=== PATIENT | female | born 1985 | race Caucasian/White ===

== ENCOUNTER 2023-09-11 11:02 | Outpatient (CLI) | payer BC, SELFPAY ==
--- NOTE | 2023-09-11 11:00 | CRLHL7_ITS ---
For Patients: As a result of the Century Cures Act, medical imaging exams and procedure reports are released immediately into your electronic medical record. You may view this report before your referring provider. If you have questions, please contact your health care provider. Indication: Chronic Sinusitis Technique: Performed without IV contrast Comparison: None available Findings: Frontal sinuses: Near complete opacification of the right frontal sinus noted. Minimal mucosal thickening within the inferior left frontal sinus. Ethmoid sinuses: Moderate opacification of the anterior right ethmoid sinus and mild opacification of the mid left ethmoid sinus. Maxillary sinuses: Complete opacification of the right maxillary sinus with bowing of medial maxillary sinus wall and obstruction of the right ostiomeatal complex. Thickening within the left maxillary sinus with patency of the left-sided sinus drainage pathway. Sphenoid sinuses: Minimal mucosal thickening within the right sphenoid sinus with partial obstruction of the sphenoidal ethmoidal recess. Left sphenoid sinus and left-sided recess are clear. Nasal Cavity: There is mild S shaped curvature of the nasal septum. No ellyn bullosa. The right middle terminate abuts the medial wall of the right maxillary sinus. No TMJ abnormalities identified. The visualized portions of the orbits, intracranial contents and upper soft tissue neck are grossly negative. Impression: 1. Severe right maxillary sinus disease with obstruction of the sinus drainage pathway and bowing deformity of the right medial maxillary sinus wall, query mucocele. 2. Moderate sinus disease involving the right ethmoid and right frontal sinuses. Mild sinus disease elsewhere. Please note that all CT scans at this facility use dose modulation, iterative reconstruction, and/or weight-based dosing when appropriate to reduce radiation dose to as low as reasonably achievable. Dictated by Jay Cm MD @ 09/11/2023 1:24:22 PM (Electronically Signed)
== END 2023-09-11 11:03 | disposition home or self-care (01) ==
LOC: CT 11:03
PROVIDERS: PCP Family Medicine; Visit Provider Otolaryngology
DX: J32.9 Chronic sinusitis, unspecified (principal); J32.0 Chronic maxillary sinusitis
CPT/HCPCS: 70486

== ENCOUNTER 2023-10-25 08:16 | Day surgery (SDC) | payer BC, SELFPAY ==
[2023-10-25] VITALS (19 sets, daily range): BP systolic 121–144; BP diastolic 72–90; PULSE 94–105; RESP 12–20; TEMP 36.3–36.9; O2SAT 87–99; BMI 25.7
--- OUTSIDE RECORDS SUMMARY | 2023-10-25 08:18 | XMS_ITS | Clinical Summary ---
Author Name Unknown Organization [facility] Address [place], [place] [address] Care Team Providers Care Line Assembly Utility Worker Name Role Phone Rosio Gorman Primary Care Provider [phone] Allergies No known active allergies Medications Medication Sig Dispensed Refills Start Date End Date Status multivitamin (MVI) tablet Take 1 Tablet by mouth once daily. 0 12/16/2020 Active Hospital, Clinic, or Other Facility Administered Medication Ordered Dose Route Frequency Start Date End Date Status levonorgestrel intrauterine device 1 Device (MIRENA)Indications: contraception 1 Device IU Q 5 YEARS 02/13/2019 Active Active Problems Problem Noted Date Diagnosed Date Genital herpes, unspecified 08/27/2007 Overview: given Valtrex for as needed use Migraine, unspecified, witho ut mention of intractable migraine without mention of status migrainosus 11/22/2006 Pap smear of cervix with ASCUS, cannot exclude H GSIL 08/28/2006 Overview: 07/2005 ASC-H 08/2005 [place]: KIKO 1 01/2006 NIL 08/2006 NIL 08/2007 NIL 08/2008 ASCUS/HPV+ 10/2008 [place]: No biopsy taken 09/2009 ASCUS/HPV+ 10/2009 [place]: No biopsy taken 03/2011 NIL 02/2013 NIL 06/2017 NIL/HPV Negative 07/2023 NIL/HPV Negative Plan: Pap and HPV due 07/2026 [facility] recommends: History of ASC-H; Pap and HPV every 3 years for 25 years. TMJ DISORDER 03/06/2005 MAJOR DEPR, SINGLE, FULL REMISSION 09/26/2004 HEADACHE, MIXED 10/27/2003 ACNE NEC 07/30/2000 SCOLIOSIS, IDIOPATHIC 04/30/2000 Resolved Problems Problem Noted Date Diagnosed Date Resolved Date Encounter for supervision of normal in first trimester 05/07/2018 10/16/2023 Overview: Not sure if she wants or repeat c section. ( distress in early labor at 35 weeks) Rosio Gorman D.O. 05/07/2018 12:57 PM Component Latest Ref Rng & Units 11/10/2018 Culture No Group B Streptococcus isolated. Estimated Date of Delivery: 12/07/18 Patient's last menstrual period was 03/02/2018. Last Tdap- 09/26/2018 Last Flu vaccine- 09/05/2018 Glucose (GTT) result- Component Latest Ref Rng & Units 09/05/2018 HEMOGLOBIN 12.0 - 16.0 g/dL 11.4 (L) MCV 80 - 100 fL 92 GLUCOSE,GESTATIONAL 65 - 139 mg/dL 85 No Known Allergies Obstetric History T1 L1 SAB0 TAB0 Ectopic0 Multiple0 Live Births0 # Outcome Date GA Lbr Jeremiah/2nd Weight Sex Delivery Anes PTL Lv 2 Current 1 Term 02/23/15 2.78 kg (6 lb 2 oz) F Name: Caryn Duarte lab flowsheet for OB labs- Component Latest Ref Rng & Units 04/04/2018 04/04/2018 04/04/2018 10:57 AM 10:57 AM 10:57 AM ANTIBODY SCREEN Negative Negative SPECIMEN EXPIRATION DATE/TIME 04/07/18 23:59 HEMOGLOBIN 12.0 - 16.0 g/dL 13.0 MCV 80 - 100 fL 88 RUBELLA IGG ANTIBODY Positive 19.00 HEMOGLOBIN A1C SCREENING <6.4 % 5.5 ABORH A Rh Positive HBSAG Nonreactive Nonreactive HEPATITIS C ANTIBODY Non-Reactive Non-Reactive HIV-1/HIV-2 ANTIBODY Non-Reactive Non-Reactive TREPONEMA PALLIDUM Negative Negative Past Medical History: Diagnosis Date ? ? ASCUS with positive high risk HPV cervical 09/2009 ? ? Depressive disorder, not elsewhere classified 2003 ? ? Headache(784.0) ? ? Other acne ? ? Scoliosis (and kyphoscoliosis), idiopathic Past Surgical History: Procedure Laterality Date ? ? SECTION Section No data on file. 2nd Problems (from 04/04/18 to present) No problems associated with this episode. NADIR Yoo.....05/07/2018 1:31 PM Supervision of normal first 08/19/2014 10/16/2023 Overview: hx of genital herpes. No outbreaks with this as of 02/07/2015. Rosio Gorman D.O. 02/07/2015 9:44 PM It's a GIRL! Rosio Gorman D.O. 10/29/2014 4:25 PM TDAP 01/10/2015 PAIN IN JOINT, UNSPECIFIED SITE 11/06/2000 08/28/2006 Impetigo 02/06/2000 08/28/2006 Encounters Date Type Department Care Team Description 10/16/2023 3:30 PM STEEL PLACER Preop Visit [facility] [address] [place] [address] Rosio Gorman, Preoperative Exam (10/25/23 [facility]) 10/16/2023 Travel 10/13/2023 Travel 09/11/2023 Orders Only [facility] Scanner 1 scan: (1-Ord) [facility], CT SINUS WO CON, 09/11/2023 from Last 3 Months Immunizations Name Administration Dates Next Due COVID-19 vaccine (Photolitec-Bio NTech 30mcg/0.3mL) PF, MDV 09/23/2021 DTP 04/13/1991, 7,06/08/1986,04/06,01/19/1986 Hepatitis A (Adult) 05/28/2014,03/05/2013 Hepatitis B (Peds) 10/14/2002,05/14/2002, 002 Human Papilloma Virus Vaccine 02/26/2008, 007,08/27/2007 Inactivated Polio Vaccine 04/13/1991 Influenza, IIV3 (Age >=3 years) 07/10/2011,09/23,09/01/2008 Influenza, IIV4 09/05/2018,08/29/2015 Influenza, IIV4 (=>6mos) MDV 07/21/2019 MMR 01/19/1998,03/04/1987 Meningococcal Vaccine 04/24/2004 Oral Polio Vaccine 05/24/1987, 6,04/06/1986,01/19 Td (Age >=7 Years) 01/19/1998 Td, Preservative Free (age >= 7 Years) 6 Tdap 09/26/2018,01/10/2015 Tuberculin (PPD) 03/26/2007 Family History Medical History Relation Name Comments Asthma Father Hyperlipidemia Father Hypertension Father Other Father migraines Hypertension Mother Genetic Other grandmother DM, glaucoma Diabetes Paternal Grandmother Other Paternal Grandmother glaucom a Relation Name Status Comments Father Alive Maternal Grandfather Maternal Grandmother Mother Alive Other Paternal Grandfather Paternal Grandmother Alive Social History Tobacco Use Types Packs/Day Years Used Date Smoking Tobacco: Never Smokeless Tobacco: Never Tobacco Cessation:Counseling Given: Yes Alcohol Use Standard Drinks/Week Comments Yes 0 (1 standard drink = 0.6 oz pur e alcohol) occassionally PHQ-2 Answer Date Recorded PHQ-2 TOTAL SCORE 0 07/08/2023 Social Connections Answer Date Recorded Frequency of Communication with Friends and Fami ly Not on file 09/13/2023 Financial Resource Strain Answer Date R ecorded Difficulty of Paying Living Expenses 3 09/11/2022 Difficulty of Paying Living Expenses Not on file 09/11/2022 Food Insecurity Answer Date Recorded Worried About Running Out of Food in the Last Ye ar 1 09/11/2022 Transportation Needs Answer Date Record ed Lack of Transportation (Medical) 1 09/11/2022 Housing Stability Answer Date Recorded Unable to Pay for Housing in the Last Year 1 09/11/2022 Sex and Gender Information Value Date Recorded Sex Assigned at Not on file Gender Identity Not on file Sexual Orientation Not on file Obstetrics History Para Term AB IAB SAB Ectopic Multiple Livin g Live Births 2 2 2 0 0 0 0 0 0 1 1 Date Outcome GA Total Labor Labor/2nd/3rd Weight Sex Delivery Anes PTL Gale A1 A5 Name Cl in 02/23 Term 2.78 kg (6 lb 2 oz) F Caryn Comments:c/s for distress, srom, 35weeks 5 days 11/26 Term 38w 3d 3.18 kg (7 lb) M Induced N Cathy ng Last Filed Vital Signs Vital Sign Reading Time Taken Comments Blood Pressure 122/85 10/16/2023 3:39 PM STEEL PLACER Pulse 94 10/16/2023 3:39 PM STEEL PLACER Temperature 36.5 ??C (97.7 ??F) 10/16/2023 3:39 PM CS T Respiratory Rate 16 04/27/2009 7:54 AM CDT Oxygen Saturation 100% 10/16/2023 3:39 PM STEEL PLACER Inhaled Oxygen Concentration - - Weight 74.4 kg (164 lb) 10/16/2023 3:39 PM STEEL PLACER Height 170.2 cm (5' 7) 07/08/2023 9:05 AM CDT Body Mass Index 25.69 07/08/2023 9:05 AM CDT Plan of Treatment Health Maintenance Due Date Last Done Comments COVID-19 vaccine series ( season) 2023 09/23/2021, 02/14/2021, 01/24/2021 Influenza for age 9-49 06/07/2023 9, 09/05/2018, 08/29/2015, Additional history exists BMI (ht and wt on same day) for age 18+ 07/08/2024 07/08/2023, 12/16/2020, 02/06/2019, Additional history exists Depression screening for age 12+ 07/08/2024 07/08/2023, 12/16/2020, 02/06/2019, Additional history exists Pap test for age 21-65 07/08/2026 , 07/08/2023, 07/03/2017, Additional history exists Tetanus booster 09/26/2028 09/26/2018, 04/03/2015, 08/28/2006, Additional history exists HIV for age 15-65 Completed 04/04/2018, 08/18/2014 Hepatitis C screening for age 18-79 Completed 04/04/2018, 08/03/2005 Tdap Completed 09/26/2018, 01/10/2015 Pneumococcal series for age 6-64 Aged Out No longer eligible based on patient's age to complete this topic Procedures Procedure Name Priority Date/Time Associated Diagnosis Comments SCAN-CT INTERPRETATION 09/11/2023 12:00 AM STEEL PLACER from Last 3 Months Results * SCAN-CT INTERPRETATION (09/11/2023 12:00 AM STEEL PLACER) Anatomical Region Laterality Modality Other Scanner OTHER from Last 3 Months Care Teams Line Assembly Utility Worker Relationship Specialty Start Date End Date Rosio Gorman DO [address] [place] [address] PCP - General Family Practice 02/23/19
[2023-10-25] MEDS: LACTATED RINGERS 1000 ML 1,000 ML 100 ML IV (08:30)
[2023-10-25 08:57] LABS: Ur HCG Qualitative* Negative (Negative)
[2023-10-25] MEDS: OXYMETAZOLINE 0.05% NASAL SPRAY 2 SPRAY NOSTRIL-B (09:00)
[2023-10-25] MEDS: SODIUM CHLORIDE 0.9 % (FLUSH) 10 ML SYRINGE IVF (09:20)
--- NOTE | 2023-10-25 10:08 | W.ANESCHARGE ---
Anesthesia Charges Start Date/Time Anesthesia Start Date: 10/25/23 Anesthesia Start Time: 10:13 Stop Date/Time Anesthesia Stop Date: 10/25/23 Anesthesia Stop Time: 11:13
[2023-10-25] MEDS: MUPIROCIN 1 GM PACKET 1 APPLIC TOPICAL (10:28)
[2023-10-25] MEDS: AYR SALINE NASAL GEL 1 APPLIC NOSTRIL-B (10:28)
[2023-10-25] MEDS: COCAINE HCL 4 % 4 ML SOLUTION NOSTRIL-B (10:28)
[2023-10-25] MEDS: BUPIVACAINE 0.5 %/EPI 1:200K 30 ML INJECTION (10:50)
--- NOTE | 2023-10-25 10:50 | W.ANESCHARGE ---
Anesthesia Charges Start Date/Time Anesthesia Start Date: 10/25/23 Anesthesia Start Time: 10:13 Stop Date/Time Anesthesia Stop Date: 10/25/23 Anesthesia Stop Time: 11:13
--- NOTE | 2023-10-25 11:01 | W.PM.ENTPROC ---
Procedure Note Date of procedure: 10/25/23 Procedure: Preoperative diagnosis opacified right maxillary ethmoid sinusitis possible mucocele deviated septum nasal obstruction Postoperative diagnosis same with polypoid tissue occluding right maxillary and anterior ethmoid sinus plus all of above new line procedure nasal septoplasty, endoscopic right maxillary antrostomy with tissue removal, endoscopic right ethmoidectomy. Note that image guidance was utilized throughout the procedure. Under general trach anesthesia patient was prepped draped usual fashion image guidance verified. The nose was injected and decongested. A right hemitransfixion incision was made left anterior and posterior tunnels were created. A vertical incision was made through the cartilage and a right posterior tunnel created. The posterior deflected portions of septal bone resected and a large piece was trimmed returned to intraseptal space. The hemitransfixion was closed with 2 4-0 chromic sutures. The 0 degree scope plus image guide lysed. The middle turbinate was medialized and crushed with the [place] forceps on the right side. There is polyp tissue anterior to the ethmoid. This was removed then the ethmoid bulla opened dissection carried out in an anterior to posterior direction removing a moderate amount of ethmoid tissue. The inferior quarter the uncinate process was taken down with the natural os was completely occluded by polypoid tissue. This was removed in the os enlarged to a 9 mm diameter. A large amount of polypoid tissue and inspissated mucus and pus was removed from the right maxillary sinus. All specimens were sent to pathology. Silastic stents were secured on either side the septum with 3-0 nylon. A dissolvable pack and a Merocel pack were placed on the right middle meatus area. A single Merocel pack was placed on the left. The patient procedure well was taken recovery in satisfactory condition. Blood loss was 50 mL. Surgeon: Juice Briggs MD
[2023-10-25] MEDS: ALBUTEROL SULFATE 2.5 MG/3 ML VIAL.NEB NEB (11:45)
[2023-10-25] MEDS: OXYCODONE 5 MG TABLET PO (12:45)
[2023-10-25] MEDS: ACETAMINOPHEN 325 MG TABLET PO (12:45)
== END 2023-10-25 13:36 | disposition home or self-care (01) ==
PROVIDERS: PCP Family Medicine; Visit Provider Otolaryngology
PROC: (CPT 31231; principal; 2023-10-25 09:45)
DX: J32.0 Chronic maxillary sinusitis (principal); J32.2 Chronic ethmoidal sinusitis; J34.2 Deviated nasal septum; J33.8 Other polyp of sinus
CPT/HCPCS: 30520; 31267; 31255; 00160; 81025; 88305; 94640; A9270; J0330; J1100; J2405; J2704; J3010; J3490; J7120